=== PATIENT | male | born 2005 | race Caucasian/White ===

== ENCOUNTER 2024-06-09 16:38 | Emergency (ER) | payer OTHER, SELFPAY ==
[2024-06-09 16:39] VITALS: BP 127/69; PULSE 60; RESP 16; TEMP 36.5; O2SAT 100
--- NOTE | 2024-06-09 16:58 | ED.GENADULT ---
HPI - General Adult General Chief complaint: Head Injury Stated complaint: hit head on steel pole Time Seen by Provider: 06/09/24 16:44 History of Present Illness HPI narrative: 19-year-old male presents to the emergency department for evaluation for a head injury that occurred just prior to arrival. Patient states he was walking and hit his head on a steel pole. Patient denies any loss of consciousness. Patient denies nausea vomiting. Patient alert is oriented. Patient has no significant intracranial history and is not on blood thinners. Patient states he feels a little dazed but has no other complaints. Patient does have a hematoma the left forehead Related Data Allergies Allergy/AdvReac Type Severity Reaction Status Date / Time No Known Allergies Allergy Unknown Unverified 06/09/24 16:39 Review of Systems Review of Systems: All systems reviewed & are unremarkable except as noted in HPI and below PMFSH Past Medical History Medical History (Updated 06/09/24 @ 17:01 by Abe Fontana MD) Acne ADHD Anxiety Surgical History Surgical History (Updated 05/05/24 @ 18:54 by AVANI James) History of dental surgery History of tonsillectomy Family History Family History (Updated 05/05/24 @ 18:54 by AVANI James) Mother Hypertension Social History Social History Smoking status: Never smoker Exam Narrative: APPEARANCE: Well appearing, no pain, no distress, well-nourished. HEAD: normocephalic, atraumatic. EYES: PERRLA/EOMI, conjunctivae clear. NOSE: Normal no drainage EARS:TMS clear with good light reflex. THROAT: Pharynx clear, no exudate. NECK: Supple. No adenopathy, no masses. RESPIRATORY: Airway patent, respirations nonlabored. Clear to auscultation bilaterally, no rales, rhonchi, wheezing. CARDIOVASCULAR: Regular rate and rhythm without murmurs rubs or gallops. ABDOMINAL: Soft, nontender, nondistended, normal bowel sounds MUSCULOSKELETAL: Moves all extremities. Strength/ROM intact, No edema, No calf tenderness. NEURO: Alert. Cranial nerves II through XII intact. Good gait. Good coordination. Negative Romberg. SKIN: Warm, dry. Normal Color PSYCHIATRIC: Normal affect/mood. Course Vital Signs Vital signs: Vital Signs Temperature 97.7 F 06/09/24 16:39 Pulse Rate 60 06/09/24 16:39 Respiratory Rate 16 06/09/24 16:39 Blood Pressure 127/69 06/09/24 16:39 Pulse Oximetry 100 06/09/24 16:39 Oxygen Delivery Room Air 06/09/24 16:39 Temperature 97.7 F 06/09/24 16:39 Pulse Rate 60 06/09/24 16:39 Respiratory Rate 16 06/09/24 16:39 Blood Pressure 127/69 06/09/24 16:39 Pulse Oximetry 100 06/09/24 16:39 Oxygen Delivery Room Air 06/09/24 16:39 Medical Decision Making MDM Narrative Medical decision making narrative: [age] old male presents emergency department for evaluation after a head injury. Patient is alert oriented has no nausea and vomiting denies any headache and is laterally blood thinners. Patient had no loss consciousness from the episode. No indication for a CT scan. Patient family were comfortable the plan for discharge and close follow-up. Differential Diagnosis Differential Diagnosis: Hematoma, concussion, skull fracture, intracranial bleed Vital Signs Vital Signs: Vital Signs Temperature 97.7 F 06/09/24 16:39 Pulse Rate 60 06/09/24 16:39 Respiratory Rate 16 06/09/24 16:39 Blood Pressure 127/69 06/09/24 16:39 Pulse Oximetry 100 06/09/24 16:39 Oxygen Delivery Room Air 06/09/24 16:39 Temperature 97.7 F 06/09/24 16:39 Pulse Rate 60 06/09/24 16:39 Respiratory Rate 16 06/09/24 16:39 Blood Pressure 127/69 06/09/24 16:39 Pulse Oximetry 100 06/09/24 16:39 Oxygen Delivery Room Air 06/09/24 16:39 Discharge Plan Discharge Clinical Impression: Closed head injury Patient Disposition: Home, Self-Care Condition: Stable Instructions: Antibiotic Form, Head Injury
== END 2024-06-09 17:09 | disposition home or self-care (01) ==
PROVIDERS: Emergency Provider Emergency Medicine; PCP Family Medicine
DX: S09.90XA Unspecified injury of head, initial encounter (principal); W22.09XA Striking against other stationary object, initial encounter
CPT/HCPCS: 99283